=== PATIENT | male | born 1985 | race Caucasian/White ===

== ENCOUNTER 2021-06-13 11:55 | Emergency (ER) | payer MEDICAID ==
[~2021-06-13] VITALS: Ht 172.7 cm; Wt 117.9 kg
[2021-06-13 12:02] VITALS: BP 178/100
--- NOTE | 2021-06-13 12:07 | NUR ---
PT SENT TO LOBBY
--- NOTE | 2021-06-13 12:32 | NUR ---
36/M PRESENTS TO ED WITH C/O RIGHT EYE PAIN. 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 STATES HE ATTEMPTED TO FLUSH HIS EYE OUT WITH NO RELIEF. DENIES ANY BLURRED VISION OR PAIN. NO OTHER COMPLAINTS AT THIS TIME.
--- NOTE | 2021-06-13 12:32 | NUR ---
ATTEMPTED TO PULL TETRACAINE OPT OINTMENT FROM [employer]. 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 ONLY PULLED ONE MEDICATION, NOT TWO.
--- NOTE | 2021-06-13 13:07 | NUR ---
PT AMBULATED TO BED 7
[2021-06-13] MEDS: FLUORESCEIN OPTH STRIP 1 MG OP ONE (13:11)
--- NOTE | 2021-06-13 13:11 | NUR ---
JACKELIN MOON BEDSIDE WITH PT
[2021-06-13] MEDS: TETRACAINE HCL/PF 0.5% OPTH 4 ML BTL OP ONE (13:12)
--- NOTE | 2021-06-13 13:20 | NUR ---
VISION TEST BOTH 20/15 RIGHT 20/15 LEFT 20/15
--- NOTE | 2021-06-13 13:23 | NUR ---
Patient discharged with v/s stable. Written and verbal after care instructions given and explained. Patient verbalized understanding. Ambulatory with steady gait. All questions addressed prior to discharge. Advised to follow up with PMD.
== END 2021-06-13 13:23 | disposition home or self-care (01) ==
LOC: MED 11:55
DX: H57.11 Ocular pain, right eye (principal)
CPT/HCPCS: 99283